=== PATIENT | female | born 1950 ===

== ENCOUNTER → 2017-03-09 | Outpatient (CLI) | payer MEDICARE, BC, OTHER ==
[~2017-03-09] MED LIST: CALCIUM 1,0001 EACH PO; FISH OIL 1,0001 EACH PO; LEXAPRO20 MG PO; LIPITOR20 M1 PO; TOLTERODINE TART4 MG PO; TUMS REGULAR ST1 TAB PO; TYLENOL325 MG PO; ZANTAC 7575 MG PO
== END | disposition disaster alternative care site (69) ==
LOC: GBCOE 08:01
DX: Z12.31 Encounter for screening mammogram for malignant neoplasm of breast (principal)
CPT/HCPCS: G0202